=== PATIENT | male | born 1970 | race Hispanic/Latino ===

== ENCOUNTER 2018-02-10 21:28 | Emergency (ER) | payer OTHER ==
[2018-02-10] MEDS ORDERED: TETANUS & DIPHTHERIA TOX,ADULT 0.5 ML VIAL ONE (22:13)
[2018-02-10] MEDS ORDERED: LIDOCAINE 2% MPF 5 ML VIAL ONE (22:13)
[2018-02-10] MEDS ORDERED: BUPIVACAINE 0.5% PF 10 ML VIAL ONE (22:14)
[2018-02-11] MEDS ORDERED: CEFAZOLIN SODIUM 1 GM/VIAL ONE (00:16)
--- NOTE | 2018-02-11 00:19 | ER ---
Nurse's Notes [facility] Name: Brenton Rivers Age: 47 yrs Sex: Male : 1970 Arrival Date: 02/10/2018 Time: 21:29 Bed 13 Private MD: Swapnil Hunter B Diagnosis: Displaced fracture of distal phalanx of right little finger-Open with nailbed laceration Presentation: 02/10 21:42 Presenting complaint: Patient states: I picked up a bed and when I went to set it down, jb4 it slammed down on my right pinky. Transition of care: patient was not received from another setting of care. Onset of symptoms was February 10, 2018. Risk Assessment: Do you want to hurt yourself or someone else? Patient reports no desire to harm self or others. Initial Sepsis Screen: Does the patient meet any 2 criteria? HR > 90 bpm. Yes Does the patient have a suspected source of infection? No. Patient's initial sepsis screen is negative. Care prior to arrival: None. 21:42 Method Of Arrival: Ambulatory jb4 21:42 Acuity: SIMA 3 jb4 Triage Assessment: 21:44 General: Appears in no apparent distress. comfortable, Behavior is calm, cooperative, jb4 appropriate for age. Pain: Complains of pain in right little fingernail Pain does not radiate. Pain currently is 0 out of 10 on a pain scale. at worst was 6 out of 10 on a pain scale. EENT: No signs and/or symptoms were reported regarding the EENT system. Neuro: Level of Consciousness is awake, alert, obeys commands, Oriented to person, place, time, situation. Cardiovascular: Patient's skin is warm and dry. Respiratory: Airway is patent Respiratory effort is even, unlabored, Respiratory pattern is regular, symmetrical. GI: No signs and/or symptoms were reported involving the gastrointestinal system. : No signs and/or symptoms were reported regarding the genitourinary system. Derm: Skin is intact, Skin is pink, warm \T\ dry. laceration to the right pinky. Musculoskeletal: Circulation, motion, and sensation intact. 21:44 Injury Description: Laceration sustained to right little fingernail. jb4 Historical: - Allergies: 21:44 No Known Allergies; jb4 - Home Meds: 21:44 lisinopril 10 mg Oral tab 1 tab once daily [Active]; jb4 - PMHx: 21:44 Hypertension; jb4 - PSHx: 21:44 None; jb4 - Immunization history:: Adult Immunizations up to date, Flu vaccine is not up to date. - Social history:: Smoking status: Patient/guardian denies using tobacco, Patient uses alcohol, Reports having 10 beers and 3 shots before coming in.. - Ebola Screening: : No symptoms or risks identified at this time. Screenin:51 Abuse screen: Denies threats or abuse. Nutritional screening: No deficits noted. jb4 Tuberculosis screening: No symptoms or risk factors identified. Fall Risk None identified. Assessment: 21:51 General: see triage assessment.. jb4 22:51 Reassessment: Patient appears in no apparent distress at this time. Patient and/or jb4 family updated on plan of care and expected duration. Pain level reassessed. Patient is alert, oriented x 3, equal unlabored respirations, skin warm/dry/pink. 23:47 Reassessment: Patient appears in no apparent distress at this time. Patient and/or jb4 family updated on plan of care and expected duration. Pain level reassessed. Patient is alert, oriented x 3, equal unlabored respirations, skin warm/dry/pink. Provider at the bedside. 02/11 00:20 Reassessment: Patient appears in no apparent distress at this time. Patient and/or jb4 family updated on plan of care and expected duration. Pain level reassessed. Patient is alert, oriented x 3, equal unlabored respirations, skin warm/dry/pink. 00:30 Reassessment: Patient appears in no apparent distress at this time. Patient and/or jb4 family updated on plan of care and expected duration. Pain level reassessed. Patient is alert, oriented x 3, equal unlabored respirations, skin warm/dry/pink. Discussed D/c,F/u with pt, denies questions or concerns. Vital Signs: 02/10 21:44 BP 141 / 97; Pulse 103; Resp 18; Temp 98.2; Pulse Ox 97% on R/A; Weight 117.48 kg; jb4 Height 5 ft. 9 in. (175.26 cm); Pain 0/10; 22:30 BP 129 / 93; Pulse 98; Resp 18; Pulse Ox 96% on R/A; jb4 23:30 BP 127 / 86; Pulse 93; Resp 18; Pulse Ox 96% ; jb4 02/11 00:21 BP 134 / 90; Pulse 98; Resp 18; Pulse Ox 94% on R/A; jb4 02/10 21:44 Body Mass Index 38.25 (117.48 kg, 175.26 cm) jb4 ED Course: 02/10 21:29 Patient arrived in ED. do 21:30 Swapnil Hunter MD is Private Physician. do 21:41 Sekou Gaytan, HARPREET is Primary Nurse. jb4 21:42 Triage completed. jb4 21:44 Arm band placed on right wrist. jb4 21:51 Patient has correct armband on for positive identification. Bed in low position. Call jb4 light in reach. Side rails up X 1. Pulse ox on. NIBP on. 21:52 Shaan Desouza PA is PHCP. cp 21:52 Lionel Del Valle MD is Attending Physician. cp 22:52 XRAY Hand RIGHT 3 View In Process Unspecified. EDMS 02/11 00:16 Britton Parson MD is Referral Physician. cp 00:30 Assist provider with laceration repair on right little fingernail that was 2.5 cm. or jb4 less using sutures. Set up tray. Performed by Shaan BEST Dressed with Xeroform. Patient did not have IV access during this emergency room visit. Administered Medications: 02/10 22:12 Drug: Tetanus-Diphtheria Toxoid Adult 0.5 ml {Boom Operator: [employer]. Exp: jb4 04/11/2020. Lot #: [id number]. } Route: IM; Site: right deltoid; 02/11 00:05 Follow up: Response: No adverse reaction jb4 02/10 23:30 Drug: Lidocaine (1 %) 5 ml Volume: 20 ml; Route: Infiltration; jb4 02/11 00:07 Follow up: Response: No adverse reaction jb4 02/10 23:30 Drug: Marcaine (0.5 %) 5 ml Volume: 10 ml; Route: Infiltration; jb4 02/11 00:07 Follow up: Response: No adverse reaction jb4 00:17 Drug: Ancef 1 grams Route: IM; Site: right gluteus; jb4 00:30 Follow up: Response: No adverse reaction jb4 Outcome: 00:18 Discharge ordered by . zulay 00:30 Discharged to home ambulatory. jb4 00:30 Condition: stable 00:30 Discharge instructions given to patient, family, Instructed on discharge instructions, follow up and referral plans. medication usage, Demonstrated understanding of instructions, follow-up care, medications, Prescriptions given X 3. 00:45 Patient left the ED. jb4 Signatures: Dispatcher [employer] EDMS Shaan Desouza PA PA cp Ogletree, Danielle do Bryson, James RN RN jb4
--- NOTE | 2018-02-11 00:19 | EDPHYS ---
Physician Documentation [facility] Name: Brenton Rivers Age: 47 yrs Sex: Male : 1970 Arrival Date: 02/10/2018 Time: 21:29 Bed 13 Private MD: Swapnil Hunter B ED Physician Lionel Del Valle HPI: 02/10 22:00 This 47 yrs old Male presents to ER via Ambulatory with complaints of Finger cp Injury. 22:00 The patient or guardian reports injury, a laceration. The complaints affect the dorsal cp side distal phalanx right small finger. 22:00 Context: resulted from a crush injury, bed. Onset: The symptoms/episode began/occurred cp just prior to arrival. Associated signs and symptoms: Pertinent positives: decreased sensation distally, Pertinent negatives: cyanosis distally. Severity of symptoms: in the emergency department the symptoms are unchanged, despite home interventions. Patient reports removing and discarding distal portion of nail after injury. Historical: - Allergies: 21:44 No Known Allergies; jb4 - Home Meds: 21:44 lisinopril 10 mg Oral tab 1 tab once daily [Active]; jb4 - PMHx: 21:44 Hypertension; jb4 - PSHx: 21:44 None; jb4 - Immunization history:: Adult Immunizations up to date, Flu vaccine is not up to date. - Social history:: Smoking status: Patient/guardian denies using tobacco, Patient uses alcohol, Reports having 10 beers and 3 shots before coming in.. - Ebola Screening: : No symptoms or risks identified at this time. ROS: 22:05 Constitutional: Positive for body aches, chills, poor PO intake. cp 22:05 Respiratory: Negative for cough, shortness of breath, wheezing. cp 22:05 MS/extremity: Positive for injury or acute deformity, laceration, of the distal phalanx right small finger, Negative for decreased range of motion. 22:05 Neuro: Positive for tingling, of the distal aspect right small finger. 22:05 All other systems are negative. Exam: 22:15 Constitutional: The patient appears in no acute distress, alert, awake, non-toxic, well cp developed, well nourished. 22:15 Head/Face: Normocephalic, atraumatic. cp 22:15 Eyes: Periorbital structures: appear normal, Lids and lashes: appear normal, bilaterally. 22:15 ENT: External ear(s): are unremarkable, Nose: is normal, Mouth: is normal. 22:15 Chest/axilla: Inspection: normal. 22:15 Cardiovascular: Rate: tachycardic. 22:15 Respiratory: the patient does not display signs of respiratory distress, Respirations: normal. 22:15 Abdomen/GI: Exam negative for discomfort, distension, guarding, Inspection: abdomen appears normal. 22:15 Musculoskeletal/extremity: Extremities: grossly normal except: noted in the dorsal distal phalanx right small finger: laceration, pain, avulsion of distal portion nail, Perfusion: the extremity is normally perfused throughout, Sensation intact. Vital Signs: 21:44 BP 141 / 97; Pulse 103; Resp 18; Temp 98.2; Pulse Ox 97% on R/A; Weight 117.48 kg; jb4 Height 5 ft. 9 in. (175.26 cm); Pain 0/10; 22:30 BP 129 / 93; Pulse 98; Resp 18; Pulse Ox 96% on R/A; jb4 23:30 BP 127 / 86; Pulse 93; Resp 18; Pulse Ox 96% ; jb4 02/11 00:21 BP 134 / 90; Pulse 98; Resp 18; Pulse Ox 94% on R/A; jb4 02/10 21:44 Body Mass Index 38.25 (117.48 kg, 175.26 cm) jb4 Laceration: 00:25 Wound Repair of 1.5cm ( 0.6in ) transverse, extending through nailbed laceration to cp dorsal side distal phalanx right small finger. Linear shaped.. Distal neuro/vascular/tendon intact. Anesthesia: Digital block administered with 6 mls of Lido/Marcaine. Wound prep: Extensive cleansing by me, Wound irrigation by me. nailbed closed with 4 5-0 Vicryl using interrupted sutures and sterile technique. Skin closed with 3 5-0 Prolene using interrupted sutures and sterile technique. Dressed with Bacitracin, non-adherent dressing, xeroform, tube guaze, finger splint. Patient tolerated well. MDM: 02/10 21:52 Patient medically screened. cp 02/11 00:18 Data reviewed: vital signs, nurses notes, radiologic studies, plain films, and as a cp result, I will discharge patient. 00:18 Differential diagnosis: dislocation, open fracture, closed fracture, contusion. Test cp interpretation: by ED physician or midlevel provider: plain radiologic studies. Counseling: I had a detailed discussion with the patient and/or guardian regarding: the historical points, exam findings, and any diagnostic results supporting the discharge/admit diagnosis, radiology results, the need for outpatient follow up, a hand specialist, to return to the emergency department if symptoms worsen or persist or if there are any questions or concerns that arise at home. Response to treatment: the patient's symptoms have markedly improved after treatment. Special discussion: I discussed in detail with the patient the higher chance of wound infection based on his presenting history. 02/10 21:58 Order name: XRAY Hand RIGHT 3 View cp 02/10 21:58 Order name: Dressing - Wound; Complete Time: 00:05 cp 02/10 21:58 Order name: Gloves, Sterile; Complete Time: 22:13 cp 02/10 21:58 Order name: Setup Suture Tray; Complete Time: 22:12 cp 02/10 23:55 Order name: Wound dressing; Complete Time: 00:05 cp 02/10 23:55 Order name: Finger Splint; Complete Time: 00:05 cp Administered Medications: 02/10 22:12 Drug: Tetanus-Diphtheria Toxoid Adult 0.5 ml {Crop And Soil Technician: [employer]. Exp: jb4 04/11/2020. Lot #: [id number]. } Route: IM; Site: right deltoid; 02/11 00:05 Follow up: Response: No adverse reaction jb4 02/10 23:30 Drug: Lidocaine (1 %) 5 ml Volume: 20 ml; Route: Infiltration; jb4 02/11 00:07 Follow up: Response: No adverse reaction jb4 02/10 23:30 Drug: Marcaine (0.5 %) 5 ml Volume: 10 ml; Route: Infiltration; jb4 02/11 00:07 Follow up: Response: No adverse reaction jb4 00:17 Drug: Ancef 1 grams Route: IM; Site: right gluteus; jb4 00:30 Follow up: Response: No adverse reaction jb4 Disposition: 01:00 Chart complete. cp 19:22 Co-signature as Attending Physician, Lionel Del Valle MD. rn Disposition: 02/11/18 00:18 Discharged to Home. Impression: Displaced fracture of distal phalanx of right little finger - Open with nailbed laceration. - Condition is Stable. - Discharge Instructions: Finger Fracture, Crush Injury of the Hand. - Prescriptions for Anaprox DS 550 mg Oral Tablet - take 1 tablet by ORAL route every 12 hours As needed; 20 tablet. Keflex 500 mg Oral Capsule - take 1 capsule by ORAL route every 6 hours for 10 days; 40 capsule. Tylenol- Codeine #3 300-30 mg Oral Tablet - take 2 tablets by ORAL route every 6 hours As needed; 20 tablet. - Medication Reconciliation Form, Thank You Letter, Antibiotic Education, Prescription Opioid Use form. - Follow up: Britton Parson MD; When: 2 - 3 days; Reason: Wound Recheck. - Problem is new. - Symptoms have improved. - Notes: Follow-up with DR Parson for wound check, dressing change next 2-3 days Signatures: Dispatcher [employer] EDMS Lionel Del Valle MD MD rn Shaan Desouza PA PA cp Bryson, James RN RN jb4 Corrections: (The following items were deleted from the chart) 00:45 00:18 02/11/2018 00:18 Discharged to Home. Impression: Displaced fracture of distal jb4 phalanx of right little finger - Open with nailbed laceration. Condition is Stable. Forms are Medication Reconciliation Form, Thank You Letter, Antibiotic Education, Prescription Opioid Use. Follow up: Britton Parson; When: 2 - 3 days; Reason: Wound Recheck. Problem is new. Symptoms have improved. cp
--- NOTE | 2018-02-11 10:56 | RAD REPORT ---
EXAM DESCRIPTION: RAD - Hand Right 3 View - 02/10/2018 10:51 pm CLINICAL HISTORY: Hand pain, blunt force trauma to the distal fifth digit COMPARISON: None. FINDINGS: Fracture is present involving the distal tuft fifth distal phalanx. Multiple fracture frag ments are present at the distal component. Soft tissue injury is present as well. No foreign body. No other acute bone finding. No foreign body. IMPRESSION: Fractured tuft fifth distal phalanx as detailed.
== END 2018-02-11 00:45 | disposition home or self-care (01) ==
LOC: ER 21:28
PROC: 0JQJ0ZZ Repair Right Hand Subcutaneous Tissue and Fascia, Open Approach (ICD-10-PCS; principal; 2018-02-11)
DX: S62.636B Displaced fracture of distal phalanx of right little finger, initial encounter for open fracture (principal); S61.316A Laceration without foreign body of right little finger with damage to nail, initial encounter; W23.0XXA Caught, crushed, jammed, or pinched between moving objects, initial encounter; Y93.9 Activity, unspecified; Y92.9 Unspecified place or not applicable; Z23 Encounter for immunization; I10 Essential (primary) hypertension
CPT/HCPCS: 90714; 96372; 99284; J0690